=== PATIENT | male | born 1995 | race Two or more races ===

== ENCOUNTER 2020-10-26 13:24 | Emergency (ER) | payer BC, OTHER ==
[~2020-10-26] VITALS: Ht 172.7 cm; Wt 75.8 kg
[2020-10-26 13:33] VITALS: BP 140/91
[2020-10-26] MEDS ORDERED: LIDOCAINE-MPF 1%, 5ML ONE (15:10)
[2020-10-26] MEDS ORDERED: BUPIVACAINE 0.25% ONE (15:10)
[2020-10-26] MEDS ORDERED: BUPIVACAINE 0.25% INFIL ONE (15:30)
[2020-10-26] MEDS ORDERED: LIDOCAINE-MPF 1%, 5ML INFIL ONE (15:30)
[2020-10-26] MEDS ORDERED: CEPHALEXIN 500 MG CAPSULE ONE (16:59)
[2020-10-26] MEDS ORDERED: CEPHALEXIN 500 MG CAPSULE PO ONE (17:00)
== END 2020-10-26 17:20 | disposition home or self-care (01) ==
LOC: ED 17:14
DX: S62.632B Displaced fracture of distal phalanx of right middle finger, initial encounter for open fracture (principal); W22.8XXA Striking against or struck by other objects, initial encounter; Y93.89 Activity, other specified; Y92.89 Other specified places as the place of occurrence of the external cause; Y99.0 Civilian activity done for income or pay
CPT/HCPCS: 12042; 99284